=== PATIENT | male | born 1945 | race Caucasian/White ===

== ENCOUNTER 2018-01-03 05:43 | Day surgery (SDC) | payer MEDICARE ==
[~2018-01-03] VITALS: Ht 180.3 cm; Wt 78.3 kg
[~2018-01-03 05:43] MED LIST: ASPI325T PO; CRES10TA PO; FURO20TA PO; LANTUS2P SC; LEVO88TA2 PO; LISI-357 PO; METF500 PO; METO25 PO; TAMS0.4C67 PO
[2018-01-03] MEDS ORDERED: IOHEXOL 350 MG/ML 50 ML BTL (for Cath Lab) OTHER ONE (05:44)
[2018-01-03] MEDS ORDERED: SODIUM CHLOR 0.9% 1000 ML INJ 1,000 ML IV SCH ×2 (06:30→09:31)
[2018-01-03 06:58] LABS: BASOPHIL % 0.4 % (0.0-2.0); EOSINOPHIL # 0.2 TH/MM3 (0-0.4); EOSINOPHIL % 2.1 % (0.0-4.0); HEMATOCRIT 33.3 % (39.0-51.0); HEMOGLOBIN 11.2 GM/DL (13.0-17.0); LYMPH % 10.5 % (9.0-44.0); LYMPHOCYTE # 0.8 TH/MM3 (1.0-4.8); MEAN CORPUSCULAR HEMOGLOBIN 29.6 PG (27.0-34.0); MEAN CORPUSCULAR HGB CONC 33.6 % (32.0-36.0); MEAN PLATELET VOLUME 10.2 FL (7.0-11.0); MONO % 6.2 % (0.0-8.0); MONOCYTE # 0.5 TH/MM3 (0-0.9); NEUT % 80.8 % (16.0-70.0); PLATELET COUNT 122 TH/MM3 (150-450); RED BLOOD COUNT 3.78 MIL/MM3 (4.50-5.90); RED CELL DISTRIBUTION WIDTH 14.9 % (11.6-17.2); WHITE BLOOD COUNT 7.4 TH/MM3 (4.0-11.0)
[2018-01-03 07:08] LABS: INTERNATIONAL NORMALIZED RATIO 1.2 RATIO
[2018-01-03 07:27] LABS: BICARBONATE 25.1 MEQ/L (21.0-32.0); CALCIUM 8.5 MG/DL (8.5-10.1); CREATININE 2.21 MG/DL (0.60-1.30)
[2018-01-03 08:15] VITALS: BP 159/72; PULSE 84; RESP 16; O2SAT 97
[2018-01-03] MEDS ORDERED: HEPARIN-NS/PF FLUSH BAG 2,000 ML IV FLUSH ONE (08:21)
[2018-01-03] MEDS ORDERED: MIDAZOLAM HCL 2 MG/2 ML VIAL ONE (08:21)
[2018-01-03] MEDS ORDERED: HEPARIN SODIUM - IV 10,000 UNITS/10 ML VIAL ONE (08:22)
[2018-01-03] MEDS ORDERED: METO25TA3 PO (08:23)
[2018-01-03] MEDS ORDERED: METF850T PO (08:23)
[2018-01-03] MEDS ORDERED: ASPI-516 CHEW (08:23)
[2018-01-03] MEDS ORDERED: LISI-515 PO (08:23)
[2018-01-03] MEDS ORDERED: LEVO88TA2 PO (08:23)
[2018-01-03] MEDS ORDERED: GABA300C5 PO (08:23)
[2018-01-03] MEDS ORDERED: POTA10CA PO (08:23)
[2018-01-03] MEDS ORDERED: ROSU1TAB6 PO (08:23)
[2018-01-03] MEDS ORDERED: FURO40TA PO (08:23)
[2018-01-03] MEDS ORDERED: TAMS0.4C4 (08:23)
[2018-01-03] MEDS ORDERED: SODIUM CHLOR 0.9% 250 ML INJ 250 ML IV PRN (09:45)
[2018-01-03] MEDS ORDERED: MISC INFORMATION XX ONE (09:45)
[2018-01-03] MEDS ORDERED: SODIUM CHLORIDE 0.9% FLUSH 10 ML FLUSH IV FLUSH PRN (09:45)
[2018-01-03] MEDS ORDERED: ATROPINE SULFATE 1 MG/ML VIAL IV PUSH PRN (09:45)
[2018-01-03 12:14] LABS: BILIRUBIN, URINE NEG (NEG); BLOOD, URINE SMALL (NEG); GLUCOSE,URINE NEG (NEG); KETONE, URINE TRACE mg/dL (NEG); NITRITE,URINE NEG (NEG); URINE COLOR YELLOW (YELLW/STRAW); URINE LEUKOCYTE ESTERASE TRACE (NEG)
[2018-01-03 12:21] LABS: BACTERIA, URINE RARE /hpf; SQUAMOUS EPITHELIAL CELL URINE 1 /hpf (0-5)
--- NOTE | 2018-01-03 12:43 | PD.FRAIL ---
Date: January 03, 2018 Height: 180.34 cm Weight: 78.3 kg BMI: 24.1 Assessment Performed: Outpatient Days in Hospital at Exam: 0 Albumin 01/03/18 06:30: Blood Urea Nitrogen 49, Creatinine 2.21, Random Glucose 146, Albumin 4.0, Calcium Level 8.5, Sodium Level 144, Potassium Level 4.2, Chloride Level 108, Carbon Dioxide Level 25.1 Pass/Fail: Pass [place] Activities Daily Living [place] ADL Score: Bathing(bathes self/help in single area): Green (1), Dressing(gets/puts clothes on self): Green (1), Toileting(goes without help): Green ( 1), Transferring(unassisted or [facility] aides): Green (1), Continence( complete self-control): Green (1), Feeding(self, prep by another allowed) : Green (1), Total: 6 Pass/Fail: Pass Combination Window Installer Strength Grasp 1: 18 Grasp 2: 15 Grasp 3: 20 Average: 17.6 Pass/Fail: Fail 15-Foot Walk 15-Foot Walk (seconds): 9.6 Pass/Fail: Fail Total Frailty Total Frailty (out of 4): 2 Frailty Index Score Reference Combination Window Installer Strength: BMI: <=24 Cutoff for numerical control nesting operator strength(Kg): <=29 BMI: 24.1-28 Cutoff for numerical control nesting operator strength(Kg): <=30 BMI: >28 Cutoff for numerical control nesting operator strength(Kg): <=32 15-Foot Walk: Height: <=173 cm 15-Foot Walk Cutoff Time: >=7 seconds Height: >173 cm 15-Foot Walk Cutoff Time: >=6 seconds Valerie Schuler RN January 03, 2018 12:43
--- NOTE | 2018-01-03 13:54 | ECHRPT ---
Indication: EVAL FOR TAVR CONCLUSIONS Normal left ventricular size. Mild concentric left ventricular hypertrophy. There is abnormal (paradoxical) septal motion consistent with postoperative state. The left atrial size is mildly dilated. The right atrial size is mildly dilated. Moderate thickening of the aortic valve leaflets. Aortic valve mean gradient is 47 mmHg. Aortic valve area is 0.57 cm. Mild aortic valve regurgitation. Moderate aortic valve stenosis. BP: / HR: Rhythm: Sinus MEASUREMENTS (Male / Female) Normal Values Technical Quality:Fair 2D ECHO LV Diastolic Diameter PLAX 4.8 cm 4.2 - 5.9 / 3.9 - 5.3 cm LV Systolic Diameter PLAX 3.4 cm IVS Diastolic Thickness 1.2 cm 0.6 - 1.0 / 0.6 - 0.9 cm LVPW Diastolic Thickness 1.2 cm 0.6 - 1.0 / 0.6 - 0.9 cm LV Relative Wall Thickness 0.5 RV Internal Dim ED PLAX 2.3 cm LVOT Diameter 2.1 cm Aortic Root Diameter 2.7 cm LA Systolic Diameter LX 3.7 cm 3.0 - 4.0 / 2.7 - 3.8 cm DOPPLER AV Peak Velocity 478.0 cm/s AV Peak Gradient 91.4 mmHg AV Mean Gradient 47.0 mmHg AV Velocity Time Integral 106.0 cm LVOT Peak Velocity 81.2 cm/s LVOT Peak Gradient 2.6 mmHg LVOT Velocity Time Integral 17.5 cm AV Area Cont Eq vti 0.6 cm AV Area Cont Eq pk 0.6 cm FINDINGS LEFT VENTRICLE Normal left ventricular size. Mild concentric left ventricular hypertrophy. There is abnormal (paradoxical) septal motion consistent with postoperative state. The left ventricular systolic function is normal with an estimated ejection fraction in the range of 60-65%. RIGHT VENTRICLE Normal right ventricular size and systolic function. LEFT ATRIUM The left atrial size is mildly dilated. RIGHT ATRIUM The right atrial size is mildly dilated. ATRIAL SEPTUM Normal atrial septal thickness without atrial level shunting by limited color doppler interrogation. AORTA The aortic root and proximal ascending aorta are not well visualized. MITRAL VALVE Structurally normal mitral valve. No mitral valve stenosis or regurgitation. AORTIC VALVE Moderate thickening of the aortic valve leaflets. Aortic valve mean gradient is 47 mmHg. Aortic valve area is 0.57 cm. Mild aortic valve regurgitation. Moderate aortic valve stenosis. TRICUSPID VALVE Structurally normal tricuspid valve. No tricuspid valve stenosis or regurgitation. PULMONARY VALVE The pulmonary valve is not well visualized. VESSELS The inferior vena cava is normal in size. PERICARDIUM No pericardial effusion. Callum Diop MD, FACC (Electronically Signed) Final Date:03 Jan 2018 13:52
--- NOTE | 2018-01-03 14:38 | PD.CAR.PN ---
CVT Progress Note Subjective/Hospital Course: pt seen and evaluated / full note dictated sts data discussed with pt RISK SCORES About the STS Risk Calculator Procedure: AV Replacement Risk of Mortality: 6.65% Morbidity or Mortality: 34.66% Long Length of Stay: 15.513% Short Length of Stay: 21.559% Permanent Stroke: 2.461% Prolonged Ventilation: 23.359% DSW Infection: 0.37% Renal Failure: 16.251% Reoperation: 11.393% Objective: Vital Signs Date Time Temp Pulse Resp B/P (MAP) Pulse Ox O2 Delivery O2 Flow Rate FiO2 01/03/18 09:42 95 Room Air 01/03/18 08:15 84 16 159/72 (101) 97 Labs: Laboratory Tests Test 01/03/18 06:30 01/03/18 10:00 01/03/18 10:05 White Blood Count 7.4 TH/MM3 (4.0-11.0) Red Blood Count 3.78 MIL/MM3 (4.50-5.90) Hemoglobin 11.2 GM/DL (13.0-17.0) Hematocrit 33.3 % (39.0-51.0) Mean Corpuscular Volume 88.0 FL (80.0-100.0) Mean Corpuscular Hemoglobin 29.6 PG (27.0-34.0) Mean Corpuscular Hemoglobin Concent 33.6 % (32.0-36.0) Red Cell Distribution Width 14.9 % (11.6-17.2) Platelet Count 122 TH/MM3 (150-450) Mean Platelet Volume 10.2 FL (7.0-11.0) Neutrophils (%) (Auto) 80.8 % (16.0-70.0) Lymphocytes (%) (Auto) 10.5 % (9.0-44.0) Monocytes (%) (Auto) 6.2 % (0.0-8.0) Eosinophils (%) (Auto) 2.1 % (0.0-4.0) Basophils (%) (Auto) 0.4 % (0.0-2.0) Neutrophils # (Auto) 6.0 TH/MM3 (1.8-7.7) Lymphocytes # (Auto) 0.8 TH/MM3 (1.0-4.8) Monocytes # (Auto) 0.5 TH/MM3 (0-0.9) Eosinophils # (Auto) 0.2 TH/MM3 (0-0.4) Basophils # (Auto) 0.0 TH/MM3 (0-0.2) CBC Comment DIFF FINAL Differential Comment Prothrombin Time 12.0 SEC (9.8-11.6) Prothromb Time International Ratio 1.2 RATIO Activated Partial Thromboplast Time 27.3 SEC (24.3-30.1) Blood Urea Nitrogen 49 MG/DL (7-18) Creatinine 2.21 MG/DL (0.60-1.30) Random Glucose 146 MG/DL (74-106) Albumin 4.0 GM/DL (3.4-5.0) Calcium Level 8.5 MG/DL (8.5-10.1) Sodium Level 144 MEQ/L (136-145) Potassium Level 4.2 MEQ/L (3.5-5.1) Chloride Level 108 MEQ/L (98-107) Carbon Dioxide Level 25.1 MEQ/L (21.0-32.0) Anion Gap 11 MEQ/L (5-15) Estimat Glomerular Filtration Rate 29 ML/MIN (>89) Urine Color YELLOW (YELLW/STRAW) Urine Turbidity CLEAR (CLEAR) Urine pH 5.0 (5.0-8.5) Urine Specific [place] 1.014 (1.002-1.035) Urine Protein 30 mg/dL (NEG-TRACE) Urine Glucose (UA) NEG mg/dL (NEG) Urine Ketones TRACE mg/dL (NEG) Urine Occult Blood SMALL (NEG) Urine Nitrite NEG (NEG) Urine Bilirubin NEG (NEG) Urine Urobilinogen 0.2 MG/DL (LESS THAN Urine Leukocyte Esterase TRACE (NEG) Urine RBC 1 /hpf (0-3) Urine WBC 3 /hpf (0-5) Urine Squamous Epithelial Cells 1 /hpf (0-5) Urine Bacteria RARE /hpf (NONE) Microscopic Urinalysis Comment CULT NOT INDICATED Result Diagram: 01/03/1862901/03/[id number] Tania Rene January 03, 2018 14:38
--- NOTE | 2018-01-03 15:34 | MB ---
cc: Tania Rene Jacqueline R ARNP DATE: 01/03/2018 DATE OF : 1945 HISTORY OF PRESENT ILLNESS: This is a 72-year-old patient of Dr. Diop and Dr. Andres Aaron with history of aortic stenosis. Recent symptoms of lower extremity edema, underwent routine followup with repeat 2-D echocardiogram showing an ejection fraction of 50-55%, the aortic valve area 0.54, peak gradient of 64 mm with a mean gradient of 34. Left atrial size mildly enlarged. The right atrium was mild to moderately dilated. There was some , anterior mitral valve leaflet, mild to moderate mitral regurgitation. The patient underwent cardiac catheterization. He has had history of prior coronary artery bypass graft x4 in October 2012 that was preceded by apparently an HI. The patient had surgery by Dr. Dsouza at [facility]. Cardiac catheterization revealed grafts with only approximately a 10% RCA occlusion. The left main was 50%. The graft to the LAD was open at 0%, the diagonal was 0, the circ was 0%, the RCA 10%. We were consulted to evaluate for aortic valve replacement versus transcatheter aortic valve replacement. PAST MEDICAL HISTORY: Includes coronary artery disease, severe aortic stenosis, moderate mitral regurgitation, acute on chronic diastolic heart failure with recent onset of bilateral lower extremity edema improved with addition of Lasix, chronic kidney disease with a baseline of 1.8, stage III; hypertension, hyperlipidemia, diabetes mellitus on insulin therapy, benign prostatic hypertrophy, hypothyroidism. PAST SURGICAL HISTORY: Coronary artery bypass graft x4 [place] [address] Dsouza. Colonoscopy, cystoscopy. He has had ureteral stent on the left, prostate surgery. Apparently, he has had some skin cancer which was removed. FAMILY HISTORY: Unknown. The patient is adopted. SOCIAL HISTORY: Single, no children. No tobacco. Rare alcohol. The patient still works at [employer]. He bags groceries. He is active at work. REVIEW OF SYSTEMS: GENERAL: No night sweats, fever, heat or cold intolerance. SKIN: No psoriasis itching or hives. HEENT: No blurred vision, hearing loss. RESPIRATORY: No cough, shortness of breath. CARDIOVASCULAR: Lower extremity edema, recently improved with Lasix. GASTROINTESTINAL: No diarrhea or vomiting. GENITOURINARY: No burning, frequency, urgency. QUALITY INTERN: No history of TIA, CVA or seizure disorder. ENDOCRINOLOGY: Positive for hypothyroidism and diabetes mellitus. PHYSICAL EXAMINATION: VITAL SIGNS: Blood pressure 150/70, heart rate of 84, afebrile. Room air sat 95. GENERAL: Awake, alert, in no acute distress. HEENT: Head is normocephalic, atraumatic. Pupils equal and reactive. Oral mucosa pink, moist. NECK: Supple. No JVD. HEART SOUNDS: S1, S2, with a grade 3/6 systolic murmur best noted at the left sternal border. LUNGS: Diminished in the bases, otherwise clear to auscultation. No wheezes, rales or rhonchi. ABDOMEN: Soft, nontender, no masses or organomegaly. EXTREMITIES: Reveal trace edema with good distal pulses. LABORATORY DATA: Hemoglobin of 11, hematocrit of 33, white cell count of 7.4, platelet count of 122. Sodium 144, potassium 4.2, BUN of 49, creatinine 2.21, baseline at 1.8. INR 1.2. Urinalysis was unremarkable. MRSA screen pending. Patient's fragility score: 2/4 STS Score: 6.65 risk of mortality. IMPRESSIONS: 1. This is a very pleasant 72-year-old male with prior history of coronary artery disease with bypass grafting in 2012, which would make him a re-do sternotomy. 2. Other risk factors include diabetes mellitus, chronic kidney disease, now with a creatinine of 2.2 with a baseline of 1.8. 3. Acute on chronic diastolic congestive heart failure, improved with the use of Lasix for his lower extremity edema. 4. Cardiac catheterization as above in the HPI. RECOMMENDATIONS AT THIS TIME: Risk for transcatheter aortic valve replacement since secondary he would be a re-do sternotomy and he has a high risk for mortality at 6.65. JEFFREY Tomlin MD JRT/SHEBA , 03:01 PM , 03:33 PM
--- NOTE | 2018-01-03 15:59 | RADRPT ---
EXAM DATE/TIME: 01/03/2018 14:29 [place] COMPARISON: No previous studies available for comparison. INDICATIONS : Post op heart catheterization MEDICAL HISTORY : Cardiovascular disease. SURGICAL HISTORY : CABG. ENCOUNTER: Initial ACUITY: 1 day PAIN SCORE: 0/10 LOCATION: Bilateral chest FINDINGS: Mild diffuse interstitial prominence in perihilar opacities. Slight blunting of the posterior left co stophrenic angle. Cardiomediastinal contours are within normal limits. Postsurgical changes of prior median sternotomy. Bony thorax is intact. CONCLUSION: 1. Mild positive fluid balance with probable trace left pleural effusion. Samy Leung MD on January 03, 2018 at 15:57 Board Certified Radiologist. This report was verified electronically.
[2018-01-03] MEDS ORDERED: SODIUM CHLORIDE 0.9% FLUSH 10 ML FLUSH IV FLUSH SCH (21:00)
--- NOTE | 2018-01-07 09:06 | RSPPFT ---
DATE OF PROCEDURE: 01/03/18 COMMENTS: The forced vital capacity is severely reduced. The FEV1 and FEF 25-75 are both markedly reduced. The FEV1/FVC ratio is mildly reduced. IMPRESSION: This is compatible with severe, large and small airways, obstructive lung disease.
--- NOTE | 2018-01-07 16:07 | MA ---
cc: Jose Angel Rosales DO DATE: 01/03/2018 DATE OF PROCEDURE: 01/03/2018. ATTENDING PHYSICIAN: Jose Angel Rosales DO. ASSISTING PHYSICIAN: Callum Diop MD PROCEDURES PERFORMED: 1. Selective right and left coronary angiography and bypass graft (HUNTER-LAD, SVG-RPLB, SVG-Y graft OM/diagonal). 2. Coronary angiography via the angiography and left heart catheterization via the right femoral artery approach. PREPROCEDURE DIAGNOSES: 1. Severe aortic stenosis. 2. Congestive heart failure. 3. Coronary artery disease. POSTPROCEDURE DIAGNOSES: 1. Nonobstructive coronary artery disease with patent bypass grafts. 2. Patent coronary artery bypass grafts with diffuse obstructive [place] coronary artery disease. 3. Severe aortic stenosis. 4. Mildly elevated right-sided filling pressures. ANESTHESIA: 1. Fentanyl and Versed were used for conscious sedation. 1. Lidocaine was used for local anesthetic. COMPLICATIONS: None. INFORMED CONSENT: Prior to the procedure, the patient was informed of the risks of the procedure including, but not limited to bleeding, vascular complications, stroke, myocardial infarction, need for emergent bypass surgery, infection, arrhythmia, contrast allergy and . Expressing an understanding of these risks, the patient agreed to proceed with the procedure. DESCRIPTION OF PROCEDURE: After informed consent was obtained, the patient was brought to the cardiac catheterization lab in a postabsorptive state. The patient was prepped and draped in the usual sterile fashion. A timeout was taken in order to verify the patient, procedure and preprocedure labs. The right femoral artery was identified by anatomic location and palpation of the femoral pulse and overlying subcutaneous layers were anesthetized with 1% lidocaine. Using a Cook type needle, the right femoral artery was accessed using a modified Seldinger technique. A 6-[place] sheath was then advanced over the wire and with wire and dilator removed the sidearm was flushed with sterile saline and subsequently flushed between catheter exchanges. The right femoral vein was then accessed using modified Seldinger technique and a 7-[place] sheath was advanced over the wire and with wire and dilator removed, the sidearm was flushed with sterile saline. Under fluoroscopic guidance, a VIP [place]-Giovani catheter was advanced and the balloon inflated at approximately 20 cm. Full hemodynamic assessment of the RA, RV, PA and PCW positions were obtained. Both pulmonary capillary wedge, and PA oxygen saturations were obtained. The catheter was then removed with completion of the case. A JR 3.5 diagnostic catheter was advanced over a standard J-tip guidewire into the ascending aorta. With guidewire removed, the catheter engaged the right coronary artery. A JL 3.5 diagnostic catheter was advanced over A J-tip guidewire into the ascending aorta and with guidewire removed, the catheter engaged the left coronary artery. Two orthogonal angiographic images were obtained. The catheter was then exchanged over an exchange length guidewire for a JR 3.5 diagnostic catheter, which then engaged the right coronary artery. A single angiographic image was obtained. The catheter was then exchanged over an exchange length guidewire for an [place] catheter which engaged the HUNTER at the anastomotic site of the left subclavian. A single angiographic image was obtained. The catheter then engaged the vein graft to the RPLB. A single angiographic image was obtained. The catheter was then exchanged back for the JR 3.5 diagnostic catheter which engaged the Y-graft to the OM/diagonal. A single angiographic image was obtained. The catheter was then removed over a guidewire with completion of the case. Both the right femoral arterial and venous sheaths were pulled with manual pressure applied until hemostasis was achieved. ANGIOGRAPHIC FINDINGS: 1. LEFT MAIN CORONARY ARTERY: Left main coronary artery is a moderate-sized long length vessel which gives rise to an LAD and left circumflex coronary artery. There is mild proximal stenosis. There is mild stenosis in the distal limb, approximately 30%. 2. LAD: The LAD is totally occluded in its mid-segment with diffuse disease throughout the proximal segment. 3. LEFT CIRCUMFLEX: The left circumflex is a small to moderate caliber vessel and gives rise to a small to moderate caliber obtuse marginal vessel before coursing the AV groove as a diminutive vessel. There is retrograde flow into the vein graft off the mid-OM. There is mild disease throughout the LCX and OM. 4. RCA: The RCA is subtotally occluded in its proximal segment with diffuse disease throughout. The RCA gives rise to a large RPLB and PDA. There is mild diffuse disease throughout. CORONARY BYPASS GRAFT ANGIOGRAPHIC FINDINGS: 1. HUNTER-LAD: The HUNTER is widely patent from its anastomotic site in the left subclavian to the anastomotic site of the mid-LAD. The LAD runs distally to touch the apex and has mild nonobstructive disease. 2. SVG-RPDA: The vein graft is widely patent. There is retrograde flow to the mid RCA with adequate flow to the large branching RPDA, which has mild nonobstructive disease throughout. 3. SVG to OM and diagonal Y-graft: The vein graft is widely patent and provides flow to a small mid-OM and diagonal vessels which have mild nonobstructive diffuse disease throughout. HEMODYNAMIC FINDINGS: 1. RA 12 mmHg, small A and V waves with large wide descent and inspiratory variation. 2. RV: 58/1, EDP 13 mmHg. Normal ventricular waveforms. 3. PA: 47/12, mean 24 mmHg. Normal-appearing dicrotic notch. 4. PCW: 28 mmHg. Moderate-sized V-waves noted with large inspiratory variation. 5. AORTIC PRESSURE: 133/56, mean 89 mmHg. IMPRESSION: 1. Patent left internal mammary artery to left anterior descending, saphenous vein graft to right posterior descending artery, saphenous vein graft to obtuse marginal/diagonal Y-graft with diffuse [place] coronary artery disease. 2. Mildly elevated right-sided filling pressures. 3. Severe aortic stenosis. PLAN: The patient will proceed with undergoing TAVR workup. We will have him evaluated by the cardiothoracic surgeons. He will require close monitoring of renal function with contrast exposure due to underlying chronic renal insufficiency. DO YANI Monroy/SHEBA , 03:11 PM , 04:06 PM
== END 2018-01-03 15:20 | disposition home or self-care (01) ==
LOC: HDOC 05:43 → HDIC 05:44 → HDOC 15:20
PROVIDERS: ATTEND Internal Medicine
DX: I35.0 Nonrheumatic aortic (valve) stenosis (principal); I50.33 Acute on chronic diastolic (congestive) heart failure; I25.10 Atherosclerotic heart disease of native coronary artery without angina pectoris; I13.0 Hypertensive heart and chronic kidney disease with heart failure and stage 1 through stage 4 chronic kidney disease, or unspecified chronic kidney disease; E11.22 Type 2 diabetes mellitus with diabetic chronic kidney disease; N18.3 Chronic kidney disease, stage 3 (moderate); E78.5 Hyperlipidemia, unspecified; R60.0 Localized edema; Z79.4 Long term (current) use of insulin; N40.0 Benign prostatic hyperplasia without lower urinary tract symptoms; R91.8 Other nonspecific abnormal finding of lung field; E03.9 Hypothyroidism, unspecified; Z95.1 Presence of aortocoronary bypass graft; Z85.828 Personal history of other malignant neoplasm of skin
CPT/HCPCS: 71046; 80048; 81001; 82040; 85025; 85610; 85730; 86850; 86900; 86901; 87641; 93308; 93459; 94010; 99152; 99153; C1769; C1893; J1644; J2250; J3010; J7030; Q9967

== ENCOUNTER 2018-01-16 05:12 | Outpatient (CLI) | END 2018-01-16 11:43 | disposition home or self-care (01) | DX: I39 Endocarditis and heart valve disorders in diseases classified elsewhere (principal) | CPT/HCPCS: 74174; 96365; 96366; J7040; Q9967 ==

== ENCOUNTER 2018-02-07 09:55 | Day surgery (SDC) | payer MEDICARE ==
[~2018-02-07] VITALS: Ht 180.3 cm; Wt 76.5 kg
[~2018-02-07 09:55] MED LIST changes: -ASPI325T PO; -CRES10TA PO; -FURO20TA PO; +FURO40TA PO; +GABA300C5 PO; -LANTUS2P SC; +LANTUS2P SQ; -LISI-357 PO; +LISI-515 PO; -METF500 PO; +METF850T PO; -METO25 PO; +METO25TA3 PO; +POTA10CA PO; +ROSU1TAB6 PO; +TAMS0.4C4; -TAMS0.4C67 PO
[2018-02-07] MEDS ORDERED: NS 1000 ML IV SCH (10:00)
[2018-02-07] MEDS ORDERED: POVIDONE IODINE 5% (ANTISEPSIS KIT) 4 APPLICATIONS EACH NARE PRN (10:15)
[2018-02-07] MEDS ORDERED: CHLORHEXIDINE GLUCONATE 2 % 1 PACK (2 CLOTHS) TOPICAL PRN (10:15)
[2018-02-07] MEDS ORDERED: LACTATED RINGER'S 1000 ML IV PRN (10:15)
[2018-02-07] MEDS ORDERED: METOPROLOL TARTRATE 25 MG TAB PO PRN (10:15)
[2018-02-07] MEDS ORDERED: CHLORHEXIDINE GLUCONATE 2 % 1 PACK (2 CLOTHS) TOPICAL SCH (10:15)
[2018-02-07] MEDS ORDERED: MUPIROCIN 2% OINT 1 APPLIC/GM SYR NASAL SCH (10:15)
[2018-02-07] MEDS ORDERED: SODIUM CHLORID 0.9% 500 ML IV PRN (10:15)
[2018-02-07] MEDS ORDERED: POVIDONE IODINE 5% (ANTISEPSIS KIT) 4 APPLICATIONS EACH NARE SCH (10:15)
[2018-02-07] MEDS ORDERED: ceFAZolin 2 GM PREMIX 50 ML IV SCH (10:15)
[2018-02-07] MEDS ORDERED: LORazepam 1 MG TAB SL SCH (10:15)
[2018-02-07] MEDS ORDERED: VANCOMYCIN 1000 MG/NS 250 ML IV SCH ×2 (10:15)
[2018-02-07 10:32] VITALS: BP 150/72; PULSE 59; RESP 18; TEMP 98.8; O2SAT 99
[2018-02-07 10:58] LABS: AUTOMATED NEUTROPHIL # 6.3 TH/MM3 (1.8-7.7); BASOPHIL # 0.1 TH/MM3 (0-0.2); BASOPHIL % 0.8 % (0.0-2.0); EOSINOPHIL # 0.2 TH/MM3 (0-0.4); HEMATOCRIT 38.2 % (39.0-51.0); HEMOGLOBIN 12.4 GM/DL (13.0-17.0); LYMPH % 13.9 % (9.0-44.0); LYMPHOCYTE # 1.1 TH/MM3 (1.0-4.8); MEAN CELL VOLUME 90.2 FL (80.0-100.0); MEAN CORPUSCULAR HEMOGLOBIN 29.2 PG (27.0-34.0); MEAN CORPUSCULAR HGB CONC 32.3 % (32.0-36.0); MEAN PLATELET VOLUME 9.6 FL (7.0-11.0); MONO % 5.6 % (0.0-8.0); MONOCYTE # 0.5 TH/MM3 (0-0.9); NEUT % 76.7 % (16.0-70.0); PLATELET COUNT 180 TH/MM3 (150-450); RED BLOOD COUNT 4.24 MIL/MM3 (4.50-5.90); RED CELL DISTRIBUTION WIDTH 14.7 % (11.6-17.2); WHITE BLOOD COUNT 8.2 TH/MM3 (4.0-11.0)
[2018-02-07 11:10] LABS: INTERNATIONAL NORMALIZED RATIO 1.1 RATIO
[2018-02-07 11:13] LABS: BICARBONATE 26.1 MEQ/L (21.0-32.0); CALCIUM 8.9 MG/DL (8.5-10.1); CREATININE 2.02 MG/DL (0.60-1.30)
[2018-02-07] MEDS ORDERED: ISOPROTERENOL INJ PREMIX 50 ML IV ONE (14:51)
[2018-02-07] MEDS ORDERED: LIDOCAINE HCL 2% 20 ML VIAL ONE (14:51)
[2018-02-07] MEDS ORDERED: VANCOMYCIN HCL 1000 MG VIAL ONE (14:52)
[2018-02-07] MEDS ORDERED: HEPARIN-NS/PF INJ 500 ML ONE (14:52)
[2018-02-07] MEDS ORDERED: VANCOMYCIN 500 MG VIAL ONE (14:52)
[2018-02-07] MEDS ORDERED: MIDAZOLAM HCL 5 MG/5 ML VIAL ONE (14:55)
[2018-02-07] MEDS ORDERED: ceFAZolin INJ 1,000 MG VIAL ONE (15:05)
--- NOTE | 2018-02-07 15:25 | EKG ---
Date Performed: 02/07/2018 Time Performed: 10:35:18 PTAGE: 72 years EKG: Sinus bradycardia with 1st degree A-V block. Incomplete LBBB Poor R wave progression - prob able normal variant Lateral ST-T changes are nonspecific Low QRS voltages in limb leads Abnormal ECG NO PREVIOUS TRACING DOCTOR: Jesse Lal Interpretating Date/Time 02/07/2018 15:23:58
[2018-02-07 15:28] VITALS: BP 128/76; PULSE 76
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
[2018-02-07] MEDS ORDERED: ONDANSETRON HCL 4 MG/2 ML VIAL IV PUSH PRN (17:30)
[2018-02-07] MEDS ORDERED: oxyCODONE/ACETAMINOPHEN 5 MG/325 MG TAB PO PRN (17:30)
[2018-02-07] MEDS ORDERED: ATROPINE SULFATE 1 MG/ML VIAL IV PUSH PRN (17:30)
[2018-02-07] MEDS ORDERED: LIDOCAINE HCL 1% 50 ML VIAL INFIL PRN (17:30)
[2018-02-07] MEDS ORDERED: LORazepam 2 MG/ML VIAL IV PUSH PRN (17:30)
[2018-02-07] MEDS ORDERED: SODIUM CHLOR 0.9% 250 ML INJ 250 ML IV PRN (17:30)
[2018-02-07] MEDS ORDERED: ONDANSETRON ODT 4 MG TAB PO PRN (18:00)
[2018-02-07] MEDS ORDERED: BACITRACIN OINT 0.9 GM PKT TOP ONE (18:00)
== END 2018-02-07 17:51 | disposition home or self-care (01) ==
LOC: HDIC 09:55 → HDOC 09:55
PROVIDERS: ATTEND Internal Medicine Interventional Cardiology
DX: I44.7 Left bundle-branch block, unspecified (principal); I25.10 Atherosclerotic heart disease of native coronary artery without angina pectoris; I35.0 Nonrheumatic aortic (valve) stenosis; R07.9 Chest pain, unspecified; Z95.1 Presence of aortocoronary bypass graft; E11.9 Type 2 diabetes mellitus without complications; Z79.84 Long term (current) use of oral hypoglycemic drugs; Z01.818 Encounter for other preprocedural examination
CPT/HCPCS: 80048; 85025; 85610; 85730; 86850; 86900; 86901; 93005; 93620; 93623; 99152; 99153; C1730; J1644; J2250; J3010; J0690; J3370

== ENCOUNTER 2018-02-17 07:26 | Day surgery (SDC) | payer MEDICARE ==
[2018-02-17] VITALS (8 sets, daily range): BP systolic 122–162; BP diastolic 63–80; PULSE 70–82; RESP 16–20; TEMP 97.8–98; O2SAT 94–99
[~2018-02-17] VITALS: Ht 180.3 cm; Wt 73.0 kg
[2018-02-17] MEDS ORDERED: LIDOCAINE HCL 1% 10 ML VIAL SQ ONE (07:27)
[2018-02-17] MEDS ORDERED: ASPI81CH6 CHEW (07:57)
[2018-02-17] MEDS ORDERED: LANTUS2P SQ (07:57)
[2018-02-17] MEDS ORDERED: SODIUM CHLOR 0.9% 1000 ML INJ 1,000 ML IV SCH (08:15)
[2018-02-17] MEDS ORDERED: fentaNYL CITRATE 250 MCG/5 ML AMP ONE (09:02)
[2018-02-17] MEDS ORDERED: MIDAZOLAM HCL 5 MG/5 ML VIAL ONE (09:03)
--- NOTE | 2018-02-17 13:23 | RADRPT ---
EXAM DATE: 02/17/2018 1:16 PM EDT AGE/SEX: 72 years / Male INDICATIONS: Post lung biopsy left lung, evaluate for pneumothorax CLINICAL DATA: This is the patient's subsequent encounter. Patient reports that signs and symptoms h ave been present for 1 day and indicates a pain score of 0/10. MEDICAL/SURGICAL HISTORY: Cardiovascular disease. lung nodule CABG. COMPARISON: TLI, PET/CT TUMOR, 02/06/2018. . FINDINGS: No significant pneumothorax following left upper lobe lung mass biopsy. Mild diffuse interstitial pro minence and perihilar opacities. Slight blunting of the costophrenic angles likely reflect pleural ef fusions. Known upper lobe lung masses are not well demonstrated on radiograph. Cardiomediastinal cont ours are within normal limits given the expiratory technique. Remainder of the exam is unchanged. CONCLUSION: 1. No significant pneumothorax status post left upper lobe lung mass biopsy. Electronically signed by: Samy Leung MD 02/17/2018 1:22 PM EDT
--- NOTE | 2018-02-19 07:40 | RADRPT ---
EXAM DATE: 02/17/2018 11:03 AM EDT AGE/SEX: 72 years / Male INDICATIONS: Left lung mass. CLINICAL DATA: This is the patient's initial encounter. Patient reports that signs and symptoms have been present for 1 day and indicates a pain score of 0/10. MEDICAL/SURGICAL HISTORY: Diabetes. left lung mass CABG. COMPARISON: No prior exams available for comparison. BIOPSY SITE: Left lung MEDICATION(S): 2mg midazolam (Versed) IV 100mcg fentanyl (Sublimaze) IV DEVICE(S): 20 gauge BARD biopsy needle One . . PROCEDURE: CT guided Left lung biopsy Prior to the procedure informed consent was obtained. Any appropriate prior imaging studies were rev iewed. Using automated exposure control and adjustment of the mA and/or kV according to patient size , radiation dose was kept as low as reasonably achievable to obtain optimal diagnostic quality images . DICOM format image data is available electronically for review and comparison. The site was prepped in a sterile fashion. Full sterile technique was used, including cap, mask, purnima rile gloves and gown and a large sterile sheet. Hand hygiene and 2% chlorhexidine and/or betadine/al cohol prep was utilized per protocol for cutaneous antisepsis. The skin and subcutaneous tissues wer e infiltrated with local anesthetic solution. Under CT guidance 18-gauge blunt needle was placed down to the lesion in the apex of the left lung. C ore biopsy was obtained. There was minimal for pathological evaluation. So assessment for culture as well. Small pneumothorax was sucked out. Follow-up CT scan reveals no pneumothorax. Conscious sedation was performed with the prescribed dosages and duration as above in the presence of an independent trained radiology nurse to assist in the monitoring of the patient. EKG and oximetry remained stable throughout the procedure. The patient tolerated the procedure well and there were no complications. The patient was sent to Radiology Outpatient Unit in stable condition. CONCLUSION: 1. Uncomplicated CT guided biopsy apex left lung. Pathology and culture pending.. Electronically signed by: Mark Rosas MD 02/19/2018 7:38 AM EDT
== END 2018-02-17 14:42 | disposition home or self-care (01) ==
LOC: HRAD 07:26 → HRIP 07:26 → HRAD 14:42
PROVIDERS: ATTEND Family Medicine
DX: R91.8 Other nonspecific abnormal finding of lung field (principal); E11.9 Type 2 diabetes mellitus without complications; Z79.4 Long term (current) use of insulin; Z95.1 Presence of aortocoronary bypass graft
CPT/HCPCS: 32405; 71045; 77012; 87015; 87070; 87102; 87116; 87176; 87205; 87206; 88305; 88333; 99151; 99153; J2250; J3010; J7030